=== PATIENT | male | born 1970 | race Caucasian/White ===

== ENCOUNTER 2018-12-06 15:10 | Inpatient (IN) | payer OTHER ==
[~2018-12-06] VITALS: Ht 182.9 cm; Wt 96.6 kg
[2018-12-06 15:18] VITALS: BP 150/86
[2018-12-06] MEDS ORDERED: BENTYL 20 MG TA20 M1 PO (15:22)
[2018-12-06 15:29] LABS: URINE BILIRUBIN NEGATIVE (Negative); URINE BLOOD 1+ (Negative); URINE CLARITY CLEAR; URINE COLOR YELLOW; URINE GLUCOSE-RANDOM NEGATIVE (Negative); URINE KETONES 2+ (Negative); URINE LEUKOCYTES-REFLEX NEGATIVE (Negative); URINE NITRITE-REFLEX NEGATIVE (Negative); URINE PROTEIN NEGATIVE (Negative); URINE SPECIFIC GRAVITY >= 1.030 (1.005-1.030); URINE UROBILINOGEN 0.2 E.U./dl (0.2-1.0)
[2018-12-06 15:37] LABS: BACTERIA-REFLEX None Seen /HPF (None Seen); CASTS None Seen /LPF (None Seen); CRYSTALS None Seen /LPF (None Seen); MUCUS >6 Heavy strn/LPF (None Seen); SQUAMOUS NONE SEEN /LPF (0-3); URINE RBC None Seen /HPF (0-2); URINE WBC-REFLEX 0-5 Rare /HPF (0-5)
[2018-12-06 15:46] LABS: ABSOLUTE EOSINOPHILS 0.1 thou/uL (0.0-0.7); ABSOLUTE LYMPHOCYTES 2.1 thou/uL (0.8-5.3); ABSOLUTE MONOCYTES 0.6 thou/uL (0.0-1.2); BASOPHILS 0.6 %; EOSINOPHILS 0.7 %; HEMATOCRIT 46.7 % (42.0-52.0); HEMOGLOBIN 16.1 gm/dL (14.0-18.0); LYMPHOCYTES 27.2 %; MCH 31.4 pg (26.0-34.0); MCHC 34.4 g/dL (28.0-37.0); MCV 91.2 fL (80.0-100.0); MONOCYTES 7.3 %; MPV 7.2 fl. (7.2-11.1); NUCLEATED RBCS 0 /100WBC; PLATELET COUNT* 286 thou/uL (150-400); POLYS 64.2 %; RBC 5.12 mil/uL (4.50-6.00); RDW-CV 12.7 % (10.5-14.5); WBC 7.8 thou/uL (4.0-11.0)
[2018-12-06 15:51] LABS: CALCIUM 9.2 mg/dL (8.5-10.1); POTASSIUM 3.6 mmol/L (3.5-5.1)
[2018-12-06 15:54] LABS: APTT 27.3 Seconds (25.0-31.3); PROTIME 10.7 Seconds (9.20-11.50)
[2018-12-06 15:55] LABS: ALBUMIN 4.1 g/dL (3.4-5.0); TOTAL BILIRUBIN 0.4 mg/dL (<0.1-1.0); TOTAL PROTEIN 7.7 g/dL (6.4-8.2)
[2018-12-06] MEDS ORDERED: SINGULAIR 10 MG10 M1 PO (16:12)
[2018-12-06] MEDS ORDERED: ZESTORETIC 20-1 EAC3 PO (16:12)
[2018-12-06] MEDS ORDERED: CELEXA20 MG PO (16:12)
[2018-12-06] MEDS ORDERED: PROAIR HFA8.5 GM INH (16:13)
--- NOTE | 2018-12-06 16:24 | NUR ---
PHARMACY CALED TO VERIFY PT DOES NOT REMEMBER NAMES OF MEDS
[2018-12-06 16:59] VITALS: BP 147/85
[2018-12-06 17:26] VITALS: BP 147/85
--- NOTE | 2018-12-06 17:43 | NUR ---
PT ADMITTED TO ROOM 226 AROUND 1715 FOR DIARRHEA AND BLOOD IN STOOL. PT HAD CT IN ED, REFER TO RESULTS. PT HAS NO C/O PAIN AT THIS TIME. IVF AND ANTIBIOTICS INFUSING ORDERED. VSS. TELE SR. PT TO BE NPO AFTER MIDNIGHT FOR GI CONSULT. NO OTHER CONCERNS AT THIS TIME. CLWR. WCTM.
[2018-12-06 20:00] VITALS: BP 145/63
[2018-12-07] VITALS: BP 107/59
[2018-12-07 03:46] LABS: ABSOLUTE EOSINOPHILS 0.1 thou/uL (0.0-0.7); ABSOLUTE LYMPHOCYTES 2.8 thou/uL (0.8-5.3); ABSOLUTE MONOCYTES 0.5 thou/uL (0.0-1.2); ABSOLUTE NEUTROPHILS 2.6 thou/uL (1.6-8.1); BASOPHILS 0.5 %; EOSINOPHILS 1.6 %; HEMATOCRIT 42.4 % (42.0-52.0); HEMOGLOBIN 14.5 gm/dL (14.0-18.0); LYMPHOCYTES 46.2 %; MCH 31.3 pg (26.0-34.0); MCHC 34.1 g/dL (28.0-37.0); MCV 91.7 fL (80.0-100.0); MONOCYTES 8.5 %; MPV 7.5 fl. (7.2-11.1); NUCLEATED RBCS 0 /100WBC; PLATELET COUNT* 228 thou/uL (150-400); POLYS 43.2 %; RBC 4.63 mil/uL (4.50-6.00); RDW-CV 12.6 % (10.5-14.5); WBC 6.1 thou/uL (4.0-11.0)
[2018-12-07 04:00] VITALS: BP 111/61
[2018-12-07 04:16] LABS: CALCIUM 8.2 mg/dL (8.5-10.1); POTASSIUM 3.5 mmol/L (3.5-5.1)
[2018-12-07 04:49] LABS: MAGNESIUM 1.7 mg/dL (1.8-2.4)
--- NOTE | 2018-12-07 07:07 | NUR ---
ASSUMED PT CARE AT 1930. ASSESSMENT COMPLETED CHARTED. ABLE TO MAKE NEEDS KNOWN. PT RESTING IN BED AT THIS TIME. C/O PAIN AND CRAMPING IN ABDOMEN AND GAVE PRN PAIN MEDICATION. NO ISSUES SINCE THEN. UP AD ALISON. WILL CONTINUE TO MONITOR.
[2018-12-07 08:14] VITALS: BP 122/74
[2018-12-07 11:50] VITALS: BP 124/71
--- NOTE | 2018-12-07 12:09 | NUR ---
MET WITH PT TO DISCUSS HOME SITUATION/DC PLANNING. PT LIVES WITH . HE WORKS AND IS INDEPENDENT AND ACTIVE. USES CPAP AT NIGHT, NOT ALWAYS COMPLIANT. PT DENIES ANY DC NEEDS. PLANS TO RETURN HOME AT DC. WILL FOLLOW
--- NOTE | 2018-12-07 12:49 | NUR ---
Nutrition: RD went in to Round on pt. He and asked about diet info. They are going to "Whole 30" diet after disch. We discussed this diet, as well as Plate Method and general healthy eating. All questions answered. RD feels pt and will be successful in their dietary changes.
--- NOTE | 2018-12-07 16:15 | NUR ---
PT PROGRESSING TOWARDS GOALS AT THIS TIME. TOLERATING GI PREP. STILL REPORTING BLOODY STOOLS AT THIS TIME. NO OTHER CONCERNS. CLWR. WCTM.
[2018-12-07 16:47] VITALS: BP 132/75
[2018-12-07 20:00] VITALS: BP 117/76
[2018-12-08] VITALS: BP 105/65
[2018-12-08 04:54] VITALS: BP 121/76
[2018-12-08 04:54] LABS: ABSOLUTE EOSINOPHILS 0.1 thou/uL (0.0-0.7); ABSOLUTE LYMPHOCYTES 1.8 thou/uL (0.8-5.3); ABSOLUTE MONOCYTES 0.3 thou/uL (0.0-1.2); ABSOLUTE NEUTROPHILS 2.5 thou/uL (1.6-8.1); BASOPHILS 0.4 %; EOSINOPHILS 1.7 %; HEMATOCRIT 38.8 % (42.0-52.0); HEMOGLOBIN 13.7 gm/dL (14.0-18.0); MCH 31.9 pg (26.0-34.0); MCHC 35.4 g/dL (28.0-37.0); MONOCYTES 6.9 %; MPV 7.5 fl. (7.2-11.1); NUCLEATED RBCS 0 /100WBC; PLATELET COUNT* 216 thou/uL (150-400); RBC 4.31 mil/uL (4.50-6.00); RDW-CV 12.2 % (10.5-14.5); WBC 4.8 thou/uL (4.0-11.0)
[2018-12-08 05:01] LABS: CREATININE 0.8 mg/dL (0.6-1.3); MAGNESIUM 2.2 mg/dL (1.8-2.4); POTASSIUM 3.5 mmol/L (3.5-5.1)
--- NOTE | 2018-12-08 07:02 | NUR ---
ASSUMED PT CARE AT 1930. ASSESSMENT COMPLETED CHARTED. ABLE TO MAKE NEEDS KNOWN. UP AD ALISON AND STAYED THE NIGHT WITH PT. C/O ABDOMINAL CRAMPING CONTROLED WITH MORPHINE. NAUSEA AND VOMITING X1 LAST NIGHT WITH BOWEL PREP LIQUID AND GAVE X1 ZOFRAN WITH NO FURTHER C/O NAUSEA. COLONOSCOPY TODAY AND HAS YELLOW, WATER STOOLS. WILL CONTINUE TO MONITOR.
[2018-12-08 08:15] VITALS: BP 123/81
[2018-12-08 16:00] VITALS: BP 125/79
--- NOTE | 2018-12-08 19:11 | NUR ---
ASSUMED PT CARE AT 0730, FULL ASSESMENT DONE CHARTED. PT A/OX4, STATES HE IS HAVING WATERY STOOLS THIS AM WITH BOWEL PREP FOR COLONOSCOPY. PT DENIES SEEING ANY BLOOD SINCE STOOLS BECAME LOOSE. HE DENIES PAIN. VSS, SR ON THE MONITOR. PT LEFT FOR COLONOSCOPY AT APPROX 0950, RETURNED AT APPROX 1600 PT ABLE TO TOLERATE DINNER, DRINKING WATER OK. UP AD ALISON, HAS HAS SOME LOOSE STOOLS SINCE COLON. PT STATES HE FEELS BETTER. USING CALL LIGHT APPROPRIATLY. UP AD ALISON. WILL CONTINUE TO MONITOR.
[2018-12-09 04:00] VITALS: BP 115/65
[2018-12-09 08:00] VITALS: BP 131/80
--- NOTE | 2018-12-09 09:11 | NUR ---
ASSUMED PT CARE AT 0730, FULL ASSESMENT DONE CHARTED. PT A/O X4, STATES HE IS FEELING BETTER TODAY. PT WANTS TO GO HOME TODAY. VSS, SB ON THE MONITOR. UP AD ALISON. WILL CONTINUE WITH PLAN OF CARE
[2018-12-09] MEDS ORDERED: CIPRO500 MG PO (11:30)
[2018-12-09] MEDS ORDERED: FLAGYL500 M1 PO (11:30)
[2018-12-09] MEDS ORDERED: MIRALAX17 GM PO (11:30)
[2018-12-09 11:32] VITALS: BP 107/64
[2018-12-09 12:16] VITALS: BP 107/64
--- NOTE | 2018-12-09 12:32 | CON ---
[address] [address] CONSULTATION Name: FILIPE MANCINI JR Room: [address] IN ..#: [id number] Admission: 12/06/18 Attend Phys: Audelia Chan MD Discharge: Date of : 72 Report #: [id number] THIS REPORT FOR: //name// CC: SUNI Hernandez DICTATED BY: Mabel Mock [facility] DATE OF SERVICE: 12/07/2018 Please note at the time of this dictation, the patient was seen and physically examined by myself. HISTORY OF PRESENT ILLNESS: This is a 47-year-old male who presented to the Emergency Room. Tuesday evening prior to going to bed, he noticed that his stomach was a little upset, rumbling. He had had a normal bowel movement that day that was soft and formed since he started taking Metamucil since the beginning of the year. He has not noticed any blood in his stools prior to the episode that occurred yesterday. The patient states he was awaken about midnight with abdominal cramping and the urge to have a bowel movement in which he had diarrhea, but no blood was noted at that time. He went back to bed. Approximately an hour later, he got up and he started having bloody diarrhea that was bright red blood with some blood clots he states and that had continued along with the abdominal cramping. Prior to him coming to the Emergency Room later that day, he had 10-15 episodes of bloody diarrhea with only 2 or 3 of them noting a lot of blood in his stool. He continues to have a lot of cramping as well. He states he did have a bowel movement this morning that was more dark maroon in color, but still very loose. The patient states that during the night when all of his symptoms started, he was a little diaphoretic and he was chilled, but denied any fever at that time. The patient states he does not recall being constipated that he has been going fairly regular. However, he went to a graduation constitution party over the past 2 weekends and has not been eating and he attributed that this may have caused some of his discomfort. He was diagnosed he states many years ago with irritable bowel syndrome when he will have an abrupt onset of this profuse diarrhea depending on what he has eaten. He has had colonoscopies done in the past. His last one done over a year ago was at [facility], he states which was normal. He was placed on Bentyl at that time and we will obtain those records. He has had several other colonoscopies done at [facility] or [facility] which we will obtain as well. The patient typically takes Bentyl 20 mg once in the morning on most given days. He denies any nausea or vomiting at this time. ALLERGIES: No known drug allergies. MEDICATIONS: From home, dicyclomine, Zestoretic, Celexa, [place] [address] CONSULTATION Name: FILIPE MANCINI JR Room: [address]#: [id number] Admission: 12/06/18 Attend Phys: Audelia Chan MD Discharge: Date of : 72 Report #: [id number] albuterol inhaler. PAST MEDICAL HISTORY: Irritable bowel syndrome, hypertension. PAST SURGICAL HISTORY: Negative. FAMILY HISTORY: Positive for breast cancer on paternal side of the family. SOCIAL HISTORY: Denies any tobacco use or illegal drug use and does alcohol socially. REVIEW OF SYSTEMS: Twelve-point review of systems is essentially negative except what is mentioned in the HPI. PHYSICAL EXAMINATION: VITAL SIGNS: Temperature 36.5, pulse 68, respirations 15, blood pressure 122/74. HEART: Regular rate and rhythm. LUNGS: Clear. ABDOMEN: Soft, positive bowel sounds in all 4 quadrants with tenderness noted on the left side about mid down and towards the sigmoid area. LABORATORY DATA: Hemoglobin on admission was 16.1. He is 14.5, white count is 7.8, platelets 266. GFR is 80. CT of the abdomen and pelvis showed colitis of the descending colon from the splenic flexure junction down to the sigmoid with some noted in the transverse as well. The findings are nonspecific, could be infectious or inflammatory. IMPRESSION: 1. Bloody diarrhea. 2. Abdominal pain. 3. Abnormal CT findings. 4. History of irritable bowel syndrome. 5. Family history of breast cancer on paternal side. PLAN: 1. Colonoscopy tomorrow with Dr. Solomon. 2. Stool cultures pending. 3. Clear liquid diet. 4. Continue antibiotics. 5. Obtain records from [facility] as well as [facility]. 6. Further recommendations to be made once the procedure has been performed. [address] [address] CONSULTATION Name: FILIPE MANCINI JR Room: [address] IN M.R.#: [id number] Admission: 12/06/18 Attend Phys: Audelia Chan MD Discharge: Date of : 72 Report #: [id number] Thank you for allowing us to participate in this patient's care. Please do not hesitate to call with any questions in regard to this consult. <ELECTRONICALLY SIGNED> By: Tono Solis DO 12/09/18 1232 [id number] Solis DO /nt
--- NOTE | 2018-12-09 13:07 | NUR ---
recieved discharge orders. pt and educated on new meds and follow up appointments. both verbalized understanding. pt left unit at approx 1250 via wc with belongings
== END 2018-12-09 12:50 | disposition home or self-care (01) | DRG 392 ==
LOC: M.ERS 15:10 → M.TBA-ER 15:57 → M.2W 15:57
PROVIDERS: Family Medicine; ADMIT Family Medicine
PROC: 0DBN8ZX Excision of Sigmoid Colon, Via Natural or Artificial Opening Endoscopic, Diagnostic (ICD-10-PCS; principal; 2018-12-08)
DX: K52.9 Noninfective gastroenteritis and colitis, unspecified (principal); K92.2 Gastrointestinal hemorrhage, unspecified; I10 Essential (primary) hypertension; K64.8 Other hemorrhoids; D12.6 Benign neoplasm of colon, unspecified; K58.1 Irritable bowel syndrome with constipation; J45.909 Unspecified asthma, uncomplicated; Z79.899 Other long term (current) drug therapy; Z83.3 Family history of diabetes mellitus; Z83.79 Family history of other diseases of the digestive system

== ENCOUNTER 2020-05-24 15:22 | Emergency (ER) | payer OTHER ==
[~2020-05-24] VITALS: Ht 182.9 cm; Wt 97.5 kg
[~2020-05-24 15:22] MED LIST: BENTYL 20 MG TA20 M1 PO; CELEXA20 MG PO; CIPRO500 MG PO; FLAGYL500 M1 PO; MIRALAX17 GM PO; PROAIR HFA8.5 GM INH; SINGULAIR 10 MG10 M1 PO; ZESTORETIC 20-1 EAC3 PO
[2020-05-24] MEDS ORDERED: CHOLESTEROL (15:33)
[2020-05-24] MEDS ORDERED: ZYRTEC10 M5 PO (15:33)
[2020-05-24] MEDS ORDERED: KEFLEX500 M1 PO (17:38)
[2020-05-24] MEDS ORDERED: IBUPROFEN 800800 M1 PO (17:38)
[2020-05-24] MEDS ORDERED: APAP W/CODEINE1 TA2 PO (17:51)
[2020-05-24 18:11] VITALS: BP 130/72
== END 2020-05-24 18:13 | disposition home or self-care (01) ==
LOC: M.ERS 15:22
DX: S01.81XA Laceration without foreign body of other part of head, initial encounter (principal); S16.1XXA Strain of muscle, fascia and tendon at neck level, initial encounter; M25.522 Pain in left elbow; W17.89XA Other fall from one level to another, initial encounter; Y93.89 Activity, other specified; Y92.89 Other specified places as the place of occurrence of the external cause; Y99.8 Other external cause status